=== PATIENT | female | born 1960 | race Caucasian/White ===

== ENCOUNTER 2019-07-14 00:55 | Outpatient (CLI) | payer BC, SELFPAY ==
--- NOTE | 2019-07-14 08:43 | DI.RAD_ITS ---
EXAM: XR HIP LT AP LAT ONLY INDICATION: LT HIP PAIN WITH WEIGHTBEARING. COMPARISON: No exams were available for comparison TECHNIQUE: 2D digital imaging was performed. FINDINGS: Mild periarticular degenerative changes involving the left hip are identified. There is a question r egarding a possible cystic area involving the ischium and further evaluation with CT is suggested.
== END 2019-07-14 01:15 ==
PROVIDERS: PCP Family Medicine; Visit Provider Chiropractor
DX: M25.552 Pain in left hip (principal); M16.12 Unilateral primary osteoarthritis, left hip; M84.859 Other disorders of continuity of bone, unspecified pelvic region and thigh
CPT/HCPCS: 73502

== ENCOUNTER 2019-08-11 01:36 | Outpatient (CLI) | payer BC, SELFPAY ==
--- NOTE | 2019-08-11 09:05 | DI.CT_ITS ---
EXAM: CT LOWER EXTREMITY LT WO CLINICAL HISTORY: ? CYSTIC AREA INVOLVING ISCHIUM ON LT HIP XRAY TECHNIQUE: Images were performed from the mid pelvis through the proximal femur. COMPARISON: ABD PELVIS WITH CONTRAST from 10/14/2015 ABD PELVIS WITH CONTRAST from 10/14/2015 XR HIP LT AP LAT ONLY from 07/14/2019 FINDINGS: There is no evidence of a lytic or blastic lesion. No abnormalities seen in the ischium. The findi ngs on plain film are artifactual. IMPRESSION: Negative CT of the left hip.
== END 2019-08-11 01:56 ==
PROVIDERS: PCP Family Medicine; Visit Provider Physician Assistant Medical
DX: M85.48 Solitary bone cyst, other site
CPT/HCPCS: 73700

== ENCOUNTER 2023-07-31 15:31 | Outpatient (REF) | payer BC, SELFPAY ==
[2023-07-31 16:25] LABS: Bacteria Few HPF (Negative); C & S Indicated? C&S Done As Ordered; Casts 0-2 Hyaline LPF (Negative); Crystals Mod Calcium Oxalate HPF (Negative); Epithelial Cells Rare HPF (Negative); Mucus Trace (Negative); Other Cells Rare Renal (Negative); RBC 0-2 HPF (0-2); WBC 20-50 HPF (0-5)
== END 2023-07-31 15:32 | disposition home or self-care (01) ==
LOC: LBN 15:31
PROVIDERS: PCP Family Medicine; Visit Provider Physician Assistant Medical
DX: R35.0 Frequency of micturition (principal)
CPT/HCPCS: 87077; 81015; 87086; 87186